=== PATIENT | male | born 1945 | race Caucasian/White ===

== ENCOUNTER 2023-07-08 14:31 | Emergency (ER) | payer MEDICARE, SELFPAY ==
--- NOTE | ~2023-07-08 | XR_ITS ---
EXAMINATION: XR CHEST CLINICAL INFORMATION: Palpitations. COMPARISON: None available. TECHNIQUE: Frontal view of the chest was obtained. FINDINGS: The lungs are expanded with blunting of right CP angle from pleural effusion or thickening and underlying right lower lobe atelectasis. Rest the lungs are clear. Heart size is enlarged with increased pulmonary vascularity likely mild congestion. There are surgical silvana in the right infrahilar region from previous intervention. There are median sternotomy sutures from previous intervention. No gross bony abnormality seen. XR/XR chest 1V IMPRESSION: Mild right pleural effusion with underlying atelectasis. Mild cardiomegaly with mild congestion.
--- NOTE | 2023-07-08 14:36 | ECG_ITS ---
Test Reason : PALPITATIONS Blood Pressure : / mmHG Vent. Rate : 073 BPM Atrial Rate : 073 BPM P-R Int : 228 ms QRS Dur : 074 ms QT Int : 394 ms P-R-T Axes : 047 011 060 degrees QTc Int : 434 ms Sinus rhythm with 1st degree A-V block Otherwise normal ECG No previous ECGs available Referred By: Generic ED Physician Electronically Signed By:IAN REAL MD
[2023-07-08 14:54] VITALS: BP 161/76; PULSE 75; RESP 15; TEMP 36.6; O2SAT 94
[2023-07-08 15:10] VITALS: BP 153/78; BP 174/82; PULSE 70; PULSE 74; RESP 20; O2SAT 95; O2SAT 97; BMI 31.6
--- NOTE | 2023-07-08 15:14 | ECG_ITS ---
Test Reason : PALPITATIONS Blood Pressure : / mmHG Vent. Rate : 074 BPM Atrial Rate : 074 BPM P-R Int : 226 ms QRS Dur : 074 ms QT Int : 394 ms P-R-T Axes : 053 008 062 degrees QTc Int : 437 ms Sinus rhythm with 1st degree A-V block Otherwise normal ECG When compared with ECG of 08-JUL-2023 14:59, No significant change was found Referred By: Generic ED Physician Electronically Signed By:IAN REAL MD
[2023-07-08 15:52] LABS: MANUAL DIFF FLAG NO
[2023-07-08 15:53] LABS: Basophils Percent Auto 0.4 % (0-2); Eosinophils Absolute Auto 0.1 X10*3/uL (0.0-0.4); Eosinophils Percent Auto 1.2 % (0-4); Hematocrit 39.8 % (42.0-52.0); Hemoglobin 13.1 g/dl (14.0-18.0); Imm Gran Abs Auto 0.03 X10*3/uL (0.00-0.03); Imm Gran Pct Auto 0.4 % (0.0-0.4); Lymphocytes Absolute Auto 0.9 X10*3/uL (1.2-4.9); Lymphocytes Percent Auto 12.6 % (20-40); Mean Corpuscular HGB Conc 32.9 g/dl (31.0-36.0); Mean Corpuscular Volume 91.3 fL (80.0-98.0); Mean Platelet Volume 9.2 fL (9.4-12.4); Monocytes Absolute Auto 0.7 X10*3/uL (0.1-1.2); Monocytes Percent Auto 9.8 % (2-11); Neutrophils Absolute Auto 5.6 x10*3/uL (2.0-8.3); Neutrophils Percent Auto 75.6 % (45-73); Platelet Count 211 X10*3/uL (160-400); Red Blood Count 4.36 X10*6/uL (4.60-5.80); Red Cell Distribution Width 14.1 % (11.0-16.0); White Blood Count 7.5 X10*3/uL (4.8-10.8)
--- NOTE | 2023-07-08 15:53 | ED_ITS ---
HPI - Chest Pain General Chief Complaint: Arrhythmia/Palpitations Stated Complaint: BACK PAIN NAUSEA Time Seen by Provider: 07/08/23 15:51 Source: patient Mode of arrival: EMS Limitations: no limitations History of Present Illness HPI narrative: 78 yo male with PMH of COPD, RUL lobectomy, HTN, anxiety, CAD s/p CABG 3V in 2014 only on aspirin here with c/o L posterior back pain near scapula worse with certain movements or looking up and then last night developed twinges in the chest and some nausea at rest. No fevers, no shortness of breath. He has not had a clot before. No infectious symptoms. He was blaming his L sided pain due to favoring it from [facility]. MD complaint: chest pain Pertinent past history: coronary artery disease Onset (ago): week(s) (1) Timing of current episode: episodic Prior episodes: No Onset: during rest Pain location: left chest, lateral and posterior Pain radiation: back Severity: mild Quality: sharp Relieving factors: nothing Exacerbating factors: movement Associated symptoms: nausea Treatment prior to arrival: none Related Data Home Medications Medication Instructions Recorded Confirmed amlodipine 2.5 mg tablet 2.5 mg PO DAILY 07/27/21 fluticasone 500 mcg-salmeterol 50 1 ea inhalation BID 07/27/21 mcg/dose blistr powdr for inhalation (Wixela Inhub) lorazepam 1 mg tablet 1 mg PO BID 07/27/21 losartan 100 mg tablet 100 mg PO DAILY 07/27/21 metoprolol tartrate 25 mg tablet 25 mg PO BID 07/27/21 prednisone 20 mg tablet 20 mg PO BID 07/27/21 tiotropium bromide 2.5 2 puff inhalation DAILY 07/27/21 mcg/actuation mist for inhalation (Spiriva Respimat) Previous Rx's Medication Instructions Recorded cephalexin 500 mg capsule 500 mg PO TID #30 caps 07/27/21 tetanus-diphtheria toxoids-Td 2 Lf 0.5 ml IM ONCE #0.5 mL 07/27/21 unit-2 Lf unit/0.5 mL IM suspension furosemide 20 mg tablet (Lasix) 20 mg PO DAILY #2 tabs 07/08/23 lidocaine 5 % topical patch 1 patch topical DAILY #30 ea 07/08/23 oxycodone 5 mg tablet 5 mg PO BID PRN pain #7 tabs 07/08/23 Allergies Allergy/AdvReac Type Severity Reaction Status Date / Time hydrochlorothiazide AdvReac Intermediate pancreatiti Verified 07/27/21 14:01 s bee stings Allergy Mild selling Uncoded 07/27/21 14:01 CT dye Allergy Mild hives Uncoded 07/27/21 14:01 oral pain med AdvReac Severe BP drops, Uncoded 07/27/21 14:01 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 Review of Systems 2 Review of Systems: Constitutional : No Weight loss, No Fever, No Chills Cardiovascular : pos Chest Pain, no SOB, no Dyspnea on Exertion, No Orthopnea, No Edema, No Palpitations Respiratory : No Cough, No Sputum Gastrointestinal : pos Nausea, No Vomiting, No Diarrhea, No abdominal Pain, No Hematochezia, No Melena Genitourinary : No Dysuria, No Urinary Frequency Musculoskeletal : No joint pain, No Myalgias, No Joint Swelling Skin : No Skin Lesions, No rash Neuro : No Weakness, No Numbness, No Dizziness, No Headache Psych : No Anxiety/Panic, No Depression All other systems reviewed and are negative [facility] Past Medical History Attestation statement: The following information was validated with the patient. Source: old records reviewed Medical History Coronary artery disease HTN (hypertension) Surgical History S/P CABG x 3 Social History Social History Smoked in Last 30 Days: No Use of substances other than those prescribed or required for medical reasons: No Advance Directives: Yes Advance Directives Information Provided: No Advance Directives on File: No Physical Exam 2 Vital Signs: Vital Signs: Last Vital Signs Temp 97.8 F 07/08/23 14:54 Pulse 72 07/08/23 18:32 Resp 14 07/08/23 18:32 BP 160/76 H 07/08/23 18:32 Pulse Ox 95 07/08/23 18:32 O2 Del Method Room Air 07/08/23 18:32 BMI result Body Mass Index 31.6 Appearance: Alert. Oriented X3. No acute distress. Eyes: Pupils equal, round and reactive to light. ENT: Pharynx normal. Neck: Normal inspection. Neck supple. CVS: Normal heart rate and rhythm. Pulses normal. Respiratory: No respiratory distress. Breath sounds normal. Abdomen: Soft and nontender. Back: ttp along L posterior back near scapula and paraspinal muscles Skin: Skin warm and dry. Normal skin color. Normal skin turgor. Extremities: No lower extremity edema. No calf ttp Neuro: Oriented X 3. No motor deficit. No sensory deficit. Course Course Course Narrative: age adjusted ddimer negative Medications Administered Discontinued Medications Generic Name Dose Route Start Last Admin Trade Name Arnaldo PRN Reason Stop Dose Admin Lidocaine 1 patch 07/08/23 16:10 07/08/23 17:15 Lidocaine 4 % Patch Adh..Patch TRANSDERMA 07/08/23 16:11 1 patch ONCE ONE Administration Protocol Medical Decision Making Medical Decision Making [facility] Narrative: 78 yo male with PMH of COPD, RUL lobectomy, HTN, anxiety, CAD s/p CABG 3V in 2014 only on aspirin here with c/o L posterior pain x 1 week now with twinges of chest pain and nausea starting last night but no dyspnea, infectious symptoms, not toxic. He has reproduceable pain. It is not related to exertion. At this time will obtain EKG, troponin x 1 given symptoms > 6 hours, ddimer, CXR and start on lidocaine patch Differential Diagnosis Differential Diagnoses: The differential diagnosis associated with the presentation includes atypical chest pain, muscle spasm, VTE, mass Admission/Observation Consideration of admission/observation: Escalation of care including admission/observation considered trop negative, CXR negative other than mild cardiomegaly BNP mildly bumped ddimer negative can be managed at home as outpatient Lab Data [facility] Lab Attestation statement: I reviewed the patient's lab results. 07/08/23 15:49 07/08/23 15:49 Labs: Lab Results 07/08/23 07/08/23 Range/Units 15:49 18:55 WBC 7.5 (4.8-10.8) X10*3/uL RBC 4.36 L (4.60-5.80) X10*6/uL Hgb 13.1 L (14.0-18.0) g/dl Hct 39.8 L (42.0-52.0) % MCV 91.3 (80.0-98.0) fL MCH 30.0 (27.0-33.0) pg MCHC 32.9 (31.0-36.0) g/dl RDW 14.1 (11.0-16.0) % Plt Count 211 (160-400) X10*3/uL MPV 9.2 L (9.4-12.4) fL Immature Gran % (Auto) 0.4 (0.0-0.4) % Neut % (Auto) 75.6 H (45-73) % Lymph % (Auto) 12.6 L (20-40) % [place] % (Auto) 9.8 (2-11) % Eos % (Auto) 1.2 (0-4) % Baso % (Auto) 0.4 (0-2) % Lymph # (Auto) 0.9 L (1.2-4.9) X10*3/uL [place] # (Auto) 0.7 (0.1-1.2) X10*3/uL Eos # (Auto) 0.1 (0.0-0.4) X10*3/uL Baso # (Auto) 0.0 (0.0-0.2) X10*3/uL Abs Immat Gran (auto) 0.03 (0.00-0.03) X10*3/uL Absolute Neuts (auto) 5.6 (2.0-8.3) x10*3/uL Absolute Nucleated RBC 0.000 (0.0-0.012) X10*3/uL Nucleated RBC % (auto) 0.0 (0.0-0.2) /100WBC D-Dimer High Sensitivty 244 NG/ML Sodium 140 (135-145) mmol/L Potassium 4.3 (3.3-5.1) mmol/L Chloride 106 (96-108) mmol/L Carbon Dioxide 24 (22-29) mmol/L Anion Gap 14 (12-20) BUN 15 (9-16) mg/dL Creatinine 1.02 (0.5-1.4) mg/dL Estim Creat Clear Calc 70.6 Estimated GFR > 60 Random Glucose 106 (60-115) mg/dL Calcium 9.7 (8.4-10.2) mg/dL Total Bilirubin 1.2 H (0.0-1.0) mg/dL AST 19 (5-37) U/L ALT 20 (0-40) U/L Alkaline Phosphatase 52 (39-117) U/L Troponin I High Sens < 2.7 (<3.5-35.0) ng/L B-Natriuretic Peptide 107 H (<100) pg/mL Total Protein 7.5 (6.5-8.0) g/dL Albumin 3.9 (3.5-5.0) g/dL Independent Interpretation I performed an independent interpretation of an: EKG and Plain X-Ray (no pneumonia) Interpretation: Rate: 73 Rhythm: NSR with 1st degree AVB [place]: normal Normal P waves. 1st degree AVB Normal QRS complex. ST T wave : normal no ADILSON qTC: normal prior studies: no acute ischemia The study has been interpreted contemporaneously by me. . Radiology Impression Discussion of test interpretation with radiology: I have reviewed the radiologist's reading. External Record Review External record reviewed: Inpatient record Prescription Management I considered prescription management with: Other Discharge Plan Discharge Clinical Impression: Pleural effusion Back pain Qualifiers: Back pain location: thoracic back pain Chronicity: acute Back pain laterality: left Qualified Code(s): M54.6 - Pain in thoracic spine Patient Disposition: Home, Self-Care Instructions: Pleural Effusion (ED), Back Pain (ED) Additional Instructions: heart test and blood clot test was negative, EKG was normal. 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 return for worsening symptoms, dizziness, vomiting, increasing pain or trouble breathing. decreased your salt intake. Prescriptions: New furosemide [Lasix] 20 mg tablet 20 mg PO DAILY Qty: 2 0RF lidocaine 5 % adhesive patch,medicated 1 patch topical DAILY Qty: 30 0RF Rx Instructions: leave on most painful area for up to 12 hrs oxycodone 5 mg tablet 5 mg PO BID PRN (Reason: pain) Qty: 7 0RF Rx Instructions: Partial Fill upon patient request. No Action lorazepam 1 mg tablet 1 mg PO BID losartan 100 mg tablet 100 mg PO DAILY fluticasone propion-salmeterol [Wixela Inhub] 500-50 mcg/dose blister with device 1 ea inhalation BID amlodipine 2.5 mg tablet 2.5 mg PO DAILY metoprolol tartrate 25 mg tablet 25 mg PO BID Spiriva Respimat 2.5 mcg/actuation mist 2 puff inhalation DAILY prednisone 20 mg tablet 20 mg PO BID cephalexin 500 mg capsule 500 mg PO TID Qty: 30 0RF tetanus-diphtheria toxoids-Td 2-2 Lf unit/0.5 mL suspension 0.5 ml IM ONCE Qty: 0.5 0RF Interventions: ED Discharge Assessment Last Done: 07/08/23 19:53 Discharge Date/Time: 07/08/23 19:54
[2023-07-08 16:10] LABS: Alanine Aminotransferase 20 U/L (0-40); Albumin Level 3.9 g/dL (3.5-5.0); Alkaline Phosphatase 52 U/L (39-117); Anion Gap 14 (12-20); Aspartate Amino Transferase 19 U/L (5-37); Bilirubin Total 1.2 mg/dL (0.0-1.0); Blood Urea Nitrogen 15 mg/dL (9-16); Calcium 9.7 mg/dL (8.4-10.2); Carbon Dioxide 24 mmol/L (22-29); Chloride 106 mmol/L (96-108); Creatinine Clr Calc Pharmacy 70.6; Estimated Glomerular Filt Rate > 60; Glucose Random 106 mg/dL (60-115); Potassium 4.3 mmol/L (3.3-5.1); Sodium 140 mmol/L (135-145); Total Protein 7.5 g/dL (6.5-8.0)
[2023-07-08 16:21] LABS: Troponin-I High Sensitivity < 2.7 ng/L (<3.5-35.0)
[2023-07-08 16:54] LABS: B Type Natriuretic Peptide 107 pg/mL (<100)
[2023-07-08] MEDS: Lidocaine 4 % Patch ADH..PATCH 1 PATCH TRANSDERMA (17:15)
[2023-07-08 17:18] VITALS: PULSE 75; RESP 13
[2023-07-08 18:32] VITALS: BP 160/76; PULSE 72; RESP 14; O2SAT 95
[2023-07-08 19:10] LABS: D Dimer High Sensitivity 244 NG/ML
== END 2023-07-08 19:54 | disposition home or self-care (01) ==
PROVIDERS: Emergency Provider Emergency Medicine; PCP Physician Assistant
DX: J90 Pleural effusion, not elsewhere classified (principal); M54.50 Low back pain, unspecified; R11.2 Nausea with vomiting, unspecified; M54.6 Pain in thoracic spine; R06.02 Shortness of breath; I25.10 Atherosclerotic heart disease of native coronary artery without angina pectoris; Z79.899 Other long term (current) drug therapy
CPT/HCPCS: 36415; 71045; 80053; 83880; 84484; 85025; 85379; 93005; 99283; 99285